=== PATIENT | female | born 1975 | race Caucasian/White ===

== ENCOUNTER 2018-06-02 18:36 | Emergency (ER) | payer OTHER, BC ==
[~2018-06-02] VITALS: Ht 165.1 cm; Wt 118.8 kg
[~2018-06-02 18:36] MED LIST: ADVAIR 100-501 EACH INH; ALBUTEROL SULF8.5 GM INH; CEPHALEXIN500 MG PO; IBUPROFEN600 MG PO; NORCO 5-325 TA1 EACH PO; NYQUIL D COLD295 ML PO; PREDNISONE10 MG PO; PROAIR HFA8.5 GM INH
== END 2018-06-02 20:08 | disposition home or self-care (01) ==
LOC: ED 18:36
PROC: 0HQFXZZ Repair Right Hand Skin, External Approach (ICD-10-PCS; principal; 2018-06-02)
DX: S61.210A Laceration without foreign body of right index finger without damage to nail, initial encounter (principal); Z88.0 Allergy status to penicillin; Z23 Encounter for immunization; W45.8XXA Other foreign body or object entering through skin, initial encounter; Y92.89 Other specified places as the place of occurrence of the external cause
CPT/HCPCS: 12001; 90471; 90715; 99282-25

== ENCOUNTER 2018-06-11 15:43 | Emergency (ER) | payer OTHER, BC ==
[~2018-06-11] VITALS: Ht 165.1 cm; Wt 118.8 kg
--- OUTSIDE RECORDS SUMMARY | 2018-06-11 15:48 | XMS ---
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 Perez has no Care Guidelines for this patient. Alexandru VISIT COUNT (12 MO.) [address] [facility] TOTAL 2 NOTE: Visits indicate total known visits. ED/C VISIT TRACKING (12 MO.) 06/11/2018 15:43 [facility] [place] TYPE: Emergency COMPLAINT: - WOUND CHECK 06/02/2018 18:[address] [facility] [place] TYPE: Emergency COMPLAINT: - R FINGER LACERATION DIAGNOSES: - Other foreign body or object entering through skin, initial encounter - Unspecified injury of right wrist, hand and finger(s), initial encounter - Allergy status to penicillin - Laceration without foreign body of right index finger without damage to nail, initial encounter - Other specified places as the place of occurrence of the external cause - Encounter for immunization INPATIENT VISIT TRACKING (12 MO.) No inpatient visits to display in this time frame [email or web address]
== END 2018-06-11 16:10 | disposition home or self-care (01) ==
LOC: ED 15:43
DX: Z00.8 Encounter for other general examination (principal)

== ENCOUNTER 2019-03-20 22:46 | Emergency (ER) | payer BC ==
[~2019-03-20] VITALS: Ht 165.1 cm; Wt 115.7 kg
--- OUTSIDE RECORDS SUMMARY | 2019-03-20 22:48 | XMS ---
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 Care History Medical/Surgical 06/12/2018 [facility] - Patient is currently established with [facility]. If patient is seen in the ED during business hours. Please contact CHWs at [facility]. Care Recommendation: This patient has had 5 or more Emergency Department visits in the last 12 months.\T\nbsp; Patient requires education on the scope and purpose of the ED as an acute care provider not a Primary Care Provider and should not be utilized for chronic conditions.\T\nbsp; These are guidelines and the provider should exercise clinical judgment when providing care. E.D. VISIT COUNT (12 MO.) 3 [facility] TOTAL 3 NOTE: Visits indicate total known visits. ED/UCC VISIT TRACKING (12 MO.) 03/20/2019 22:46 [facility] [place] TYPE: Emergency COMPLAINT: - VOMITING 06/11/2018 15:43 [facility] [place] TYPE: Emergency COMPLAINT: - WOUND CHECK DIAGNOSES: - Encounter for other general examination 06/02/2018 18:37 [facility] [place] TYPE: Emergency COMPLAINT: - R FINGER LACERATION DIAGNOSES: - Oth foreign body or object entering through skin, init - Unsp injury of right wrist, hand and finger(s), init encntr - Allergy status to penicillin - Laceration w/o fb of r idx fngr w/o damage to nail, init - Oth places as the place of occurrence of the external cause - Encounter for immunization INPATIENT VISIT TRACKING (12 MO.) No inpatient visits to display in this time frame [email or web address]
[2019-03-21] MEDS ORDERED: PROTONIX40 MG PO (02:21)
[2019-03-21] MEDS ORDERED: ZOFRAN4 MG PO (02:21)
== END 2019-03-21 02:32 | disposition home or self-care (01) ==
LOC: ED 22:46
DX: R10.13 Epigastric pain (principal); Z88.0 Allergy status to penicillin
CPT/HCPCS: 71045; 76705; 80053; 81001; 83605; 83690; 85025; 96361; 96374; 96375; 96376; 99284-25; J1170; J2405; J7030

== ENCOUNTER 2019-05-29 17:21 | Emergency (ER) | payer BC ==
[~2019-05-29] VITALS: Ht 165.1 cm; Wt 119.3 kg
[~2019-05-29 17:21] MED LIST changes: +PROTONIX40 MG PO; +ZOFRAN4 MG PO
--- OUTSIDE RECORDS SUMMARY | 2019-05-29 17:24 | XMS ---
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 Care History Medical/Surgical 06/12/2018 [facility] - Patient is currently established with [facility]. If patient is seen in the ED during business hours. Please contact CHWs at [facility]. Care Recommendation: This patient has had 5 [...] providing care. E.D. VISIT COUNT (12 MO.) 4 [facility] TOTAL 4 NOTE: Visits indicate total known visits. ED/UCC VISIT TRACKING (12 MO.) 05/29/2019 17:21 [facility] [place] TYPE: Emergency COMPLAINT: - SOB 03/20/2019 22:46 [facility] [place] TYPE: Emergency COMPLAINT: - VOMITING DIAGNOSES: - Allergy status to penicillin - Epigastric pain 06/11/2018 15:43 [facility] [place] TYPE: Emergency COMPLAINT: - WOUND CHECK DIAGNOSES: - Encounter for other general examination 06/02/2018 18:[address] [facility] [place] TYPE: Emergency COMPLAINT: - R [...] visits to display in this time frame [email or web address]
[2019-05-29] MEDS ORDERED: VENTOLIN HFA18 GM INH (17:33)
[2019-05-29] MEDS ORDERED: PREDNISONE20 MG PO (19:30)
--- NOTE | 2019-05-30 11:02 | EKG ---
[facility] [address] [place], [place] [address] Signed Normal sinus rhythm Prolonged QT Abnormal ECG No previous ECGs available Confirmed by LIDIA TO DO ([id number]) on 05/30/2019 11:01:30 AM Electronically Signed By: LIDIA TO DO 05/30/19 1102 PATIENT NAME: HELLEN ABEL Electrocardiogram DATE OF : 77 PHYSICIAN: LIDIA TO DO REPORT #: [id number] REPORT IS CONFIDENTIAL AND NOT TO BE RELEASED WITHOUT AUTHORIZATION
== END 2019-05-29 19:39 | disposition home or self-care (01) ==
LOC: ED 17:21
DX: J45.901 Unspecified asthma with (acute) exacerbation (principal); Z88.0 Allergy status to penicillin
CPT/HCPCS: 71045; 80048; 83735; 84484; 85025; 85379; 93005; 93010; 94640; 96365; 99285-25; J3475; J7030